=== PATIENT | female | born 2000 | race Caucasian/White ===

== ENCOUNTER 2025-01-22 19:23 | Emergency (ER) | payer OTHER ==
[~2025-01-22] VITALS: Ht 165.1 cm; Wt 62.6 kg
[2025-01-22] MEDS ORDERED: Trimethoprim/Sulfamethoxazole DS Tab PO ONE (21:25)
[2025-01-22] MEDS ORDERED: SULTRIDS PO (21:25)
[2025-01-22 21:37] VITALS: BP 128/71
== END 2025-01-22 21:38 | disposition other institution (70) ==
LOC: ER 19:23
DX: L03.011 Cellulitis of right finger (principal)
CPT/HCPCS: 10060; 99283-25; A9270